=== PATIENT | female | born 1965 | race Caucasian/White ===

== ENCOUNTER 2022-09-01 20:05 | Emergency (ER) | payer BC ==
[~2022-09-01] VITALS: Ht 175.3 cm; Wt 72.6 kg
[2022-09-01] MEDS ORDERED: DIAZ10TA4 PO (20:19)
[2022-09-01] MEDS ORDERED: HYDR-3980 PO (20:19)
[2022-09-01 21:02] VITALS: BP 132/74
--- NOTE | 2022-09-01 21:02 | NUR ---
Patient discharged to home in stable condition. Written and verbal after care instructions given. Patient verbalizes understanding of instructions. Stressed follow up or return to ER for worsening s/s.
== END 2022-09-01 21:03 | disposition home or self-care (01) ==
LOC: ER 20:05
DX: F41.9 Anxiety disorder, unspecified (principal); N95.1 Menopausal and female climacteric states; R10.2 Pelvic and perineal pain
CPT/HCPCS: A4663

== ENCOUNTER 2023-09-29 06:00 | Emergency (ER) | payer BC ==
[~2023-09-29] VITALS: Ht 175.3 cm; Wt 72.6 kg
[~2023-09-29 06:00] MED LIST: DIAZ10TA4 PO; HYDR-3980 PO
[2023-09-29] MEDS ORDERED: DIAZ10TA4 PO (06:11)
[2023-09-29 06:20] VITALS: BP 129/66; TEMP 98; O2SAT 100
== END 2023-09-29 06:24 | disposition home or self-care (01) ==
LOC: ER 06:01
DX: F41.9 Anxiety disorder, unspecified (principal); R51.9 Headache, unspecified; Z79.899 Other long term (current) drug therapy; Z60.2 Problems related to living alone
CPT/HCPCS: A4606; A4663